=== PATIENT | female | born 1970 | race Caucasian/White ===

== ENCOUNTER → 2018-02-01 | Outpatient (CLI) | payer OTHER ==
[~2018-02-01] MED LIST: MELO7.5 PO; Oxybutynin Chlo10 MG PO; PROM12.5S PR; SERT25 PO; ZIPR20 PO
== END | disposition home or self-care (01) ==
LOC: LAB SHORT 12:41 → LAB EV 12:41
DX: N39.0 Urinary tract infection, site not specified (principal)
CPT/HCPCS: 87086